=== PATIENT | male | born 1985 | race Caucasian/White ===

== ENCOUNTER 2022-01-11 12:18 | Emergency (ER) | payer OTHER, SELFPAY ==
--- NOTE | 2022-01-11 12:23 | ED.ABDPAIN ---
HPI - Abdominal Pain General Chief Complaint: Abdominal Pain Stated Complaint: stomach pain possible injury Time Seen by Provider: 01/11/22 12:23 Source: patient and RN notes reviewed History of Present Illness HPI narrative: Patient is a 36-year-old male who presents the urgent care with complaints of diffuse abdominal pain that started this morning. Patient states that he also vomited this morning. Patient lifted a heavy water heater into his dumpster yesterday and woke up with the pain this morning. Denies of any penetrating pain to the abdomen. States that he has been making bowel movements and peeing as normal. Denies of any blood in the stool or urine. Patient has not taken anything [id number] for his symptoms. Currently denies of any chest pains or shortness of breath. No other acute complaints. No acute distress noted. Patient aware of the plan of care. Some parts of this dictation were generated by voice recognition software and may contain typographical and/or grammatical inaccuracies. Related Data Home Medications Medication Instructions Recorded Confirmed No Home Medications 01/11/22 01/11/22 Allergies Allergy/AdvReac Type Severity Reaction Status Date / Time No Known Allergies Allergy Verified 01/11/22 12:35 Review of Systems Review of Systems: CONSTITUTIONAL: Denies fever, chills, or sweats. EYES: Denies visual changes, redness, or discharge. ENT: Denies rhinorrhea, congestion, sore throat, or otalgia. CARDIOVASCULAR: Denies chest pain, palpitations, or edema. RESPIRATORY: Denies cough or dyspnea. GASTROINTESTINAL: Reports of diffuse abdominal pain with vomiting GENITOURINARY: Denies dysuria or hematuria. SKIN: Denies rash or itching. MUSCULOSKELETAL: Denies back pain, joint pain, or myalgia. NEUROLOGIC: Denies headache, numbness, or weakness. All other systems reviewed are negative, except as documented in HPI. PMFSH Comments At the time of my signature, I reviewed and agree with the nursing past medical, surgical, social, and family history. There is no relevant family history pertinent to the patient complaint. Exam Narrative: GENERAL: This is a well-nourished, well-developed patient, in no apparent distress. HEAD: normocephalic, atraumatic. EYES: PERRL. Sclera clear/white. Vision is grossly intact. EARS: External ears normal NOSE: External nose normal with no obvious nasal discharge, nares without redness, no rhinorrhea. THROAT: Mucous membranes moist NECK: Neck supple CARDIOVASCULAR: Regular rate and rhythm without murmurs, gallops, or rubs. RESPIRATORY: Clear to auscultation. Breath sounds equal bilaterally. No wheezes, rales, or rhonchi. GASTROINTESTINAL: Abdomen soft, mild left lower quadrant tenderness, nondistended. Bowel sounds are active. No hepato-splenomegaly, or palpable masses. No guarding. SKIN: warm, intact with no suspicious lesions or rash, good texture and turgor. NEURO: awake, alert, and oriented to person, place and time. There were no obvious focal neurologic abnormalities. EXTREMITIES: No clubbing, cyanosis, or edema. Course Course Level of Care: Express Care Visit Vital Signs Vital signs: Vital Signs Temperature 97.4 F L 01/11/22 12:30 Pulse Rate 66 01/11/22 12:30 Respiratory Rate 16 01/11/22 12:30 Blood Pressure 154/98 H 01/11/22 12:30 Pulse Oximetry 100 01/11/22 12:30 Temperature 97.4 F L 01/11/22 12:30 Pulse Rate 66 01/11/22 12:30 Respiratory Rate 16 01/11/22 12:30 Blood Pressure 154/98 H 01/11/22 12:30 Pulse Oximetry 100 01/11/22 12:30 Reviewed-patient is informed that they may have pre-hypertension or hypertension based on a blood pressure reading in the department. I recommend the patient call the primary care provider listed on their discharge instructions or a physician of their choice this week to arrange follow-up for further evaluation of possible pre-hypertension or hypertension. MDM - Abdominal Pain MDM [facility]
[2022-01-11 12:30] VITALS: BP 154/98; PULSE 66; RESP 16; TEMP 36.3; O2SAT 100
== END 2022-01-11 13:00 | disposition home or self-care (01) ==
PROVIDERS: Emergency Provider Nurse Practitioner Family
DX: S39.011A Strain of muscle, fascia and tendon of abdomen, initial encounter (principal); X50.0XXA Overexertion from strenuous movement or load, initial encounter
CPT/HCPCS: 99211; G0463